=== PATIENT | male | born 1965 | race Caucasian/White ===

== ENCOUNTER → 2020-05-03 | Outpatient (CLI) | payer BC ==
[~2020-05-03] MED LIST: FENO160T PO; IBUP-1623 PO; RED600CA2 PO
== END | disposition home or self-care (01) ==
LOC: STAR 09:57
PROVIDERS: ATTEND Surgery
DX: Z01.818 Encounter for other preprocedural examination (principal); Z20.828 Contact with and (suspected) exposure to other viral communicable diseases
CPT/HCPCS: 36415; 87635; 93005

== ENCOUNTER 2020-05-07 08:50 | Day surgery (SDC) | payer BC ==
[~2020-05-07] VITALS: Ht 182.9 cm; Wt 117.6 kg
[~2020-05-07 08:50] MED LIST changes: +BUPIVACAINE/EPI 0.5% 1:200K ONE
[2020-05-07] MEDS ORDERED: LACTATED RINGERS 1,000 ML IV SCH (09:18)
[2020-05-07] MEDS ORDERED: CHLORHEXIDINE 15 ML UDC ONE (09:26)
[2020-05-07] MEDS ORDERED: CHLORHEXIDINE 15 ML UDC MM ONE (09:30)
[2020-05-07] MEDS ORDERED: MIDAZOLAM 1 MG/ML, 2ML ONE (11:57)
[2020-05-07] MEDS ORDERED: FENTANYL PF 250 MCG/5ML ONE (11:57)
[2020-05-07] MEDS ORDERED: HYDROmorphone 1 MG/ML, 1ML INJ IVPush PRN (12:00)
[2020-05-07] MEDS ORDERED: FENTANYL PF 100 MCG/2ML IV PRN (12:00)
[2020-05-07] MEDS ORDERED: PROMETHAZINE 25 MG/ML, 1ML IVPush PRN (12:00)
[2020-05-07] MEDS ORDERED: DIPHENHYDRAMINE 50 MG/ML, 1ML IVPush PRN (12:00)
[2020-05-07] MEDS ORDERED: LABETALOL 5MG/ML, 20ML IV PRN (12:00)
[2020-05-07] MEDS ORDERED: hydrALAzine 20 MG/ML, 1ML IV PRN (12:00)
[2020-05-07] MEDS ORDERED: MEPERIDINE/PF 25MG/0.5ML IVPush PRN (12:00)
[2020-05-07] MEDS ORDERED: HALOPERIDOL 5 MG/ML IV PRN (12:00)
[2020-05-07] MEDS ORDERED: HYDROcodone/APAP 7.5-325MG/15ML UDC PO PRN (12:00)
[2020-05-07] MEDS ORDERED: SUCCINYLCHOLINE 20 MG/ML, 10ML ONE (13:00)
[2020-05-07] MEDS ORDERED: PROPOFOL 10 MG/ML, 20ML ONE (13:00)
[2020-05-07] MEDS ORDERED: GLYCOPYRROLATE 0.2MG/1ML, 5ML ONE (13:00)
[2020-05-07] MEDS ORDERED: SUGAMMADEX 200 MG/2 ML IVPush ONE (13:00)
[2020-05-07] MEDS ORDERED: CEFAZOLIN 1,000 MG ONE (13:00)
[2020-05-07] MEDS ORDERED: ONDANSETRON 2MG/ML, 2ML ONE (13:00)
[2020-05-07] MEDS ORDERED: NEOSTIGMINE 1 MG/ML, 10ML ONE (13:00)
[2020-05-07] MEDS ORDERED: DEXAMETHASONE 4 MG/ML, 1ML ONE (13:00)
[2020-05-07] MEDS ORDERED: ROCURONIUM 10MG/ML,5ML ONE (13:00)
[2020-05-07] MEDS ORDERED: HYDROcodone/APAP 7.5-325MG/15ML UDC ONE ×2 (13:26→13:27)
== END 2020-05-07 15:15 | disposition home or self-care (01) ==
LOC: OUT 08:50
PROVIDERS: ATTEND Surgery
DX: K43.6 Other and unspecified ventral hernia with obstruction, without gangrene (principal); E78.5 Hyperlipidemia, unspecified; G47.33 Obstructive sleep apnea (adult) (pediatric); Z87.891 Personal history of nicotine dependence; Z98.890 Other specified postprocedural states
CPT/HCPCS: 49572; C1781; J0330; J0690; J1100; J2250; J2405; J2704; J3010; J7120; J2710